=== PATIENT | female | born 1955 | race Caucasian/White ===

== ENCOUNTER 2020-07-16 13:59 | Emergency (ER) | payer OTHER ==
[2020-07-16] MEDS ORDERED: BACIGUENT PACKET ONE ×3 (14:10→15:17)
[2020-07-16] MEDS ORDERED: XYLOCAINE 1% HCL 20 ML MDV ONE (14:29)
[2020-07-16] MEDS ORDERED: XYLOCAINE 1% HCL 20 ML MDV IJ ONE (14:51)
[2020-07-16] MEDS ORDERED: BACIGUENT PACKET TP ONE (14:51)
--- NOTE | 2020-07-16 15:14 | ERPHSYRPT ---
- History of Present Illness Time Seen by Provider: 07/16/20 15:30 Source: patient Exam Limitations: no limitations Patient Subjective Stated Complaint: caught left leg on cornor of step, has laceration to left lower leg about 60 mins ago Triage Nursing Assessment: pt arrived per wc alert, with face mask in place,pt has 3 inch laceration, with some bruising, scant aamt of bleeding noted Physician History: Patient is a 65-year-old female presents to our ED with a laceration to her left lower leg. Patient was walking and lacerated her leg on the edge of a wooden step. No other injuries reported. Patient ambulatory with minimal discomfort after injury. No falls. Pain is minimal. Pain is localized. No radiation. Pain somewhat worse with palpation. Pain improves with rest. Tetanus up-to-date. Vital stable. No compromise of tenderness muscular or neurologic function. Patient voices no other complaints. Timing/Duration: today Quality: painful Severity: mild Location: other (Anterolateral aspect of distal third of the left leg.) Possible Causes: other Associated Symptoms: No blisters, No change in skin texture, No difficulty breathing, No headache, No jaundice, No nasal congestion, No numbness, No paresthesia Allergies/Adverse Reactions: oxcarbazepine [From Trileptal] Allergy (Verified 07/16/20 14:14) Penicillins Allergy (Verified 07/16/20 14:14) pregabalin [From Lyrica] Allergy (Verified 07/16/20 14:14) Sulfa (Sulfonamide Antibiotics) Allergy (Verified 07/16/20 14:14) Home Medications: Atorvastatin Calcium [Lipitor 20MG Tablet] 1 ea DAILY 07/16/20 [History] Gabapentin 1 ea TID 07/16/20 [History] Hydrocodone/Acetaminophen [Hydrocodone-Acetamin 7.5-325] 1 ea DAILY 07/16/20 [History] Levothyroxine Sodium [Synthroid] 1 ea DAILY 07/16/20 [History] Ranolazine [Ranolazine ER] 1 ea DAILY 07/16/20 [History] Tizanidine HCl 1 ea DAILY 07/16/20 [History] Hx Tetanus, Diphtheria Vaccination/Date Given: Yes (3 years ago) Hx Influenza Vaccination/Date Given: No Hx Pneumococcal Vaccination/Date Given: No Immunizations Up to Date: Yes Travel Risk - International Travel Have you traveled outside of the country in past 3 weeks: No - Coronavirus Screening Are you exhibiting any of the following symptoms?: No Close contact with a COVID-19 positive Pt in past 14-21 Days: No - Review of Systems Constitutional: No Symptoms, No Fever, No Chills Eyes: No Symptoms Ears, Nose, & Throat: No Symptoms Respiratory: No Symptoms, No Cough, No Dyspnea Cardiac: No Symptoms, No Chest Pain, No Edema, No Syncope Abdominal/Gastrointestinal: No Symptoms, No Abdominal Pain, No Nausea, No Vomiting, No Diarrhea Genitourinary Symptoms: No Symptoms, No Dysuria Musculoskeletal: No Symptoms, No Back Pain, No Neck Pain Skin: No Symptoms, No Rash Neurological: No Symptoms, No Dizziness, No Focal Weakness, No Sensory Changes Psychological: No Symptoms Endocrine: No Symptoms Hematologic/Lymphatic: No Symptoms Immunological/Allergic: No Symptoms All Other Systems: Reviewed and Negative - Past Medical History Pertinent Past Medical History: Yes Neurological History: Other Cardiac History: Coronary Artery Disease GI Medical History: Hernia Other Medical History: mohamud reflux - Past Surgical History Past Surgical History: Yes Neuro Surgical History: Other Musculoskeletal: Orthopedic Surgery Other Surgical History: back surgery 2019,brain surgery for trigimal neuopathy - Social History Smoking Status: Never smoker Exposure to second hand smoke: No Drug Use: none Patient Lives Alone: No - Female History Hx Last Menstrual Period: post Hx Now: No - Nursing Vital Signs Nursing Vital Signs: Initial Vital Signs Pulse Rate 71 07/16/20 15:21 Respiratory Rate 18 07/16/20 15:21 Blood Pressure 131/81 07/16/20 15:21 O2 Sat by Pulse Oximetry 98 07/16/20 15:21 Pain Scale Pain Intensity 0 - Physical Exam General Appearance: no apparent distress, alert Eye Exam: PERRL/EOMI, eyes nml inspection Ears, Nose, Throat Exam: normal ENT inspection, pharynx normal, moist mucous membranes Neck Exam: normal inspection, non-tender, supple, full range of motion Respiratory Exam: normal breath sounds, lungs clear, No respiratory distress Cardiovascular Exam: regular rate/rhythm, normal heart sounds Gastrointestinal/Abdomen Exam: soft, mass, No tenderness Back Exam: normal inspection, normal range of motion, No CVA tenderness, No vertebral tenderness Extremity Exam: normal inspection, normal range of motion Neurologic Exam: alert, oriented x 3, cooperative, normal mood/affect, sensation nml, No motor deficits Skin Exam: normal color, warm, dry, other (3 cm semi-curvilinear laceration to the anteromedial aspect of the left lower leg. No active bleeding. Left lower extremity is neurovascular intact distally.) Lymphatic Exam: No adenopathy SpO2 Interpretation: normal SpO2: 98 O2 Delivery: Room Air Procedures - Laceration/Wound Repair Left Lower Wound Location: Left Wound's Depth, Shape: superficial Wound Explored: clean Irrigated: Yes Hibiclens Prep: Yes Anesthesia: local, 1% Lidocaine Volume Anesthetic (ccs): 4 Wound Debrided: minimal Wound Repaired With: sutures Suture Size/Type: 5-0 Number of Sutures: 5 Layer Closure?: No Sterile Dressing Applied?: Yes Splint Applied?: No Progress: Bacitracin ointment applied to the involved wound. Patient advised to keep the wound dry and the dressing intact for 48 hours. Patient agrees to follow-up with her primary care doctor within 48 hours for reevaluation. Patient neurovascular intact distally post procedure. 07/16/20 15:27 - Course Nursing assessment & vital signs reviewed: Yes Ordered Tests: Medication Summary Discontinued Medications Generic Name Dose Route Start Last Admin Trade Name Freq PRN Reason Stop Dose Admin Bacitracin Zinc Confirm 07/16/20 14:10 Baciguent Packet Administered 07/16/20 14:11 Dose 1 gm .ROUTE .STK-MED ONE Bacitracin Zinc Confirm 07/16/20 14:29 Baciguent Packet Administered 07/16/20 14:30 Dose 1 gm .ROUTE .STK-MED ONE Bacitracin Zinc 0.9 gm 07/16/20 14:51 07/16/20 15:19 Baciguent Packet TP 07/16/20 14:52 0.9 gm STAT ONE Administration Bacitracin Zinc Confirm 07/16/20 15:17 Baciguent Packet Administered 07/16/20 15:18 Dose 1 gm .ROUTE .STK-MED ONE Lidocaine HCl Confirm 07/16/20 14:29 Xylocaine 1% Hcl 20 Ml Mdv Administered 07/16/20 14:30 Dose 10 ml .ROUTE .STK-MED ONE Lidocaine HCl 10 ml 07/16/20 14:51 07/16/20 15:18 Xylocaine 1% Hcl 20 Ml Mdv IJ 07/16/20 14:52 10 ml STAT ONE Administration - Progress Progress: improved Progress Note: 07/16/20 15:29 Patient reassessed. 5 simple interrupted sutures applied. Patient neurovascular intact distally post injury. Patient unsure when she can see her family doctor. A prescription for clindamycin was provided in the event that patient develops interval signs of infection. Patient will call her family doctor to for follow-up within 48 hours for reevaluation. Patient voices no other complaints or concerns at this time. Counseled pt/family regarding: diagnosis, need for follow-up - Departure Departure Disposition: Home Clinical Impression: Laceration Condition: Stable Critical Care Time: No Referrals: WOJCIECH MARTINES NP [Primary Care Provider] - Instructions: Laceration Repair, Stitches and [place] Additional Instructions: Discharge/Care Plan ALAN MENA was seen on 07/16/20 in the Emergency Room. The patient was counseled regarding Diagnosis,Lab results, Imaging studies, need for follow up and when to return to the Emergency Room. Prescriptions given: Discharge Note I have spoken with the patient and/or caregivers. I have explained the patient's condition, diagnosis and treatment plan based on the information available to me at this time. I have answered the patient's and/or caregiver's questions and addressed any concerns. The patient and/or caregivers have as good understanding of the patient's diagnosis, condition and treatment plan as can be expected at this point. The vital signs have been stable. The patient's condition is stable and appropriate for discharge from the emergency department. The patient will pursue further outpatient evaluation with the primary care physician or other designated or consulting physician as outlined in the discharge instructions. The patient and/or caregivers are agreeable to this plan of care and follow-up instructions have been explained in detail. The patient and/or caregivers have received these instruction. The patient/and or caregivers are aware that any significant change in condition or worsening of symptoms should prompt an immediate return to this or the closest emergency department or call 911. Prescriptions: Clindamycin HCl 150 mg [Cleocin 150 mg Capsule] 2 cap PO TID 5 Days #15 capsule
[2020-07-16 15:22] VITALS: BP 131/81; PULSE 71; O2SAT 98
== END 2020-07-16 15:35 | disposition home or self-care (01) ==
LOC: ED 13:59
DX: S81.812A Laceration without foreign body, left lower leg, initial encounter (principal); W26.8XXA Contact with other sharp object(s), not elsewhere classified, initial encounter; Y93.89 Activity, other specified; Y92.9 Unspecified place or not applicable
CPT/HCPCS: 12002; 96372; 99284; A9270-GY

== ENCOUNTER 2022-01-14 09:23 | Emergency (ER) | payer MEDICARE, OTHER ==
[2022-01-14] MEDS ORDERED: TORAdol 30 mg Injection IM ONE (09:31)
--- NOTE | 2022-01-14 09:37 | ERPHSYRPT ---
- History of Present Illness Time Seen by Provider: 01/14/22 09:50 Source: patient Physician History: Patient is a 66-year-old female presents to emergency department for evaluation of right ankle pain. Patient states she was getting out of her recliner and tripped over her 's yoga mat. Patient twisted her right ankle. No other injuries reported. Pain described as an ache that is localized. No radiation. Pain worse with movement weightbearing and palpation. Pain improved with rest. No other injuries. No BHT or LOC. No neck pain. Cervical spine cleared clinically. Patient voices no other complaints or concerns at this time. Method of Injury: fell, twisted Occurred: just prior to arrival Quality: constant, aching (Patient occasionally feels a shooting sensation of her leg. No active shooting sensation at this time.) Severity of Pain-Max: moderate Severity of Pain-Current: mild Lower Extremities Pain: ankle: right Modifying Factors: Improves With: movement Associated Symptoms: none (The fall was not associated with any neurological or cardiovascular symptomology. No chest pain or shortness of breath. No nausea vomiting or diaphoresis. No numbness tingling or weakness.) Allergies/Adverse Reactions: oxcarbazepine [From Trileptal] Allergy (Verified 01/14/22 09:31) Penicillins Allergy (Verified 01/14/22 09:31) pregabalin [From Lyrica] Allergy (Verified 01/14/22 09:31) Sulfa (Sulfonamide Antibiotics) Allergy (Verified 01/14/22 09:31) Home Medications: Atorvastatin Calcium [Lipitor 20MG Tablet] 1 ea PO DAILY 07/16/20 [History] Gabapentin 1 ea PO TID 07/16/20 [History] Levothyroxine Sodium [Synthroid] 1 ea PO DAILY 07/16/20 [History] Ranolazine [Ranolazine ER] 1 ea DAILY 07/16/20 [History] Isosorbide Mononitrate [Isosorbide Mononitrate ER] 30 mg PO DAILY 01/14/22 [History] Lamotrigine [Lamotrigine ER] 200 mg PO DAILY 01/14/22 [History] Spironolactone 25 mg [Aldactone 25 MG] 25 mg PO DAILY 01/14/22 [History] estradioL [Estradiol] 0.5 mg PO DAILY 01/14/22 [History] Hx Tetanus, Diphtheria Vaccination/Date Given: Yes (3 years ago) Hx Influenza Vaccination/Date Given: No Hx Pneumococcal Vaccination/Date Given: No - Review of Systems Constitutional: No Symptoms, No Fever, No Chills Eyes: No Symptoms Ears, Nose, & Throat: No Symptoms Respiratory: No Symptoms, No Cough, No Dyspnea Cardiac: No Symptoms, No Chest Pain, No Edema, No Syncope Abdominal/Gastrointestinal: No Symptoms, No Abdominal Pain, No Nausea, No Vomiting, No Diarrhea Genitourinary Symptoms: No Symptoms, No Dysuria Musculoskeletal: No Symptoms, No Back Pain, No Neck Pain Skin: No Symptoms, No Rash Neurological: No Symptoms, No Dizziness, No Focal Weakness, No Sensory Changes Psychological: No Symptoms Endocrine: No Symptoms Hematologic/Lymphatic: No Symptoms Immunological/Allergic: No Symptoms All Other Systems: Reviewed and Negative - Past Medical History Pertinent Past Medical History: Yes Neurological History: No Pertinent History Cardiac History: Coronary Artery Disease, Other Respiratory History: No Pertinent History Endocrine Medical History: Hypothyroidism Musculoskeletal History: No Pertinent History GI Medical History: Hernia Other Medical History: RECENT BACK SURGERY ON 06/26/10, MILD-MODERATE MITRAL VALVE REGURGATION. - Past Surgical History Past Surgical History: Yes Neuro Surgical History: Other Musculoskeletal: Orthopedic Surgery Other Surgical History: back surgery 2019,brain surgery for trigimal neuopathy - Social History Smoking Status: Never smoker Exposure to second hand smoke: No Drug Use: none Patient Lives Alone: No - Nursing Vital Signs Nursing Vital Signs: Initial Vital Signs Temperature 98.2 F 01/14/22 09:35 Pulse Rate 71 01/14/22 09:35 Blood Pressure 92/62 01/14/22 09:35 O2 Sat by Pulse Oximetry 97 01/14/22 09:35 Pain Scale Pain Intensity 8 - Physical Exam General Appearance: no apparent distress, alert Eyes, Ears, Nose, Throat Exam: moist mucous membranes Neck Exam: normal inspection, non-tender, supple, full range of motion Cardiovascular/Respiratory Exam: chest non-tender, normal breath sounds, regular rate/rhythm, heart sounds normal, no respiratory distress Gastrointestinal/Abdominal Exam: non-tender, guarding Back Exam: normal inspection, normal range of motion, No vertebral tenderness Hips Exam: bilateral: non-tender, normal inspection, normal range of motion, no evidence of injury Legs Exam: bilateral leg: non-tender, normal inspection, normal range of motion, no evidence of injury Knees Exam: bilateral knee: non-tender, normal inspection, normal range of motio n, no evidence of injury Ankle Exam: right ankle: pain, soft tissue tenderness, swelling, other (The involved extremity is neurovascularly intact distally. Compartments are soft. Cap refill less than 2 seconds. PT DP pulse palpable.), left ankle: non-tender, normal inspection, normal range of motion, no evidence of injury Foot Exam: bilateral foot: non-tender, normal inspection, normal range of motion, no evidence of injury Neuro/Tendon Exam: normal sensation, normal motor functions, normal tendon functions Mental Status Exam: alert, oriented x 3, cooperative Skin Exam: normal color, warm, dry SpO2 Interpretation: normal SpO2: 97 O2 Delivery: Room Air - Course Nursing assessment & vital signs reviewed: Yes - Radiology Exams Ankle X-ray Interpretation: Teleradiologist Report (No fracture dislocations. Soft tissue swelling observed on x-ray. There is a heel spur and a small lateral mal leolus heterotopic ossification.) Ordered Tests: Active Orders 24 hr Category Date Time Status ANKLE (3 VIEWS) Stat Exams 01/14/22 09:27 Completed Medication Summary Discontinued Medications Generic Name Dose Route Start Last Admin Trade Name Freq PRN Reason Stop Dose Admin Ketorolac Tromethamine 30 mg 01/14/22 09:31 01/14/22 09:40 Ketorolac Tromethamine 30 Mg/Ml Inj IM 01/14/22 09:32 30 mg STAT ONE Administration Ketorolac Tromethamine Confirm 01/14/22 09:38 Ketorolac Tromethamine 30 Mg/Ml Inj Administered 01/14/22 09:39 Dose 30 mg .ROUTE .STK-MED ONE - Progress Progress: improved Progress Note: Patient reassessed. Pain improved. X-ray negative for fracture dislocation. Soft tissue swelling and heel spur observed. There was a small lateral malleolus heterotopic ossification at the distal tip of the malleolus. No indication for further work-up at this time. Will discharge home. 01/14/22 10:10 Counseled pt/family regarding: diagnosis, need for follow-up, rad results - Departure Departure Disposition: Home Clinical Impression: Ankle sprain, Heel spur, Heterotopic ossification malleolus Condition: Stable Critical Care Time: No Referrals: CONRAD,WOJCIECH HEMA, ARUNA [Primary Care Provider] - Follow up/PCP as directed Additional Instructions: Discharge/Care Plan ALAN MENA was seen on 01/14/22 in the Emergency Room. The patient was counseled regarding Diagnosis,Lab results, Imaging studies, need for follow up and when to return to the Emergency Room. Prescriptions given: Discharge Note I have spoken with the patient and/or caregivers. I have explained the patient's condition, diagnosis and treatment plan based on the information available to me at this time. I have answered the patient's and/or caregiver's questions and addressed any concerns. The patient and/or caregivers have as good understanding of the patient's diagnosis, condition and treatment plan as can be expected at this point. The vital signs have been stable. The patient's condition is stable and appropriate for discharge from the emergency department. The patient will pursue further outpatient evaluation with the primary care physician or other designated or consulting physician as outlined in the discharge instructions. The patient and/or caregivers are agreeable to this plan of care and follow-up instructions have been explained in detail. The patient and/or caregivers have received these instruction. The patient/and or caregivers are aware that any significant change in condition or worsening of symptoms should prompt an immediate return to this or the closest emergency department or call 911.
[2022-01-14] MEDS ORDERED: TORAdol 30 mg Injection ONE (09:38)
[2022-01-14 09:42] VITALS: BP 92/62; PULSE 71; O2SAT 97
--- NOTE | 2022-01-14 10:00 | XRAY ---
Indication: Pain following fall. Comparison: None 3 view right ankle demonstrates mild soft tissue swelling, small posterior heel spur, and small well circumscribed lateral malleolus tip heterotopic ossification. No other bony, articular, or soft tissue abnormalities.
== END 2022-01-14 10:50 | disposition home or self-care (01) ==
LOC: ED 09:23
DX: S93.401A Sprain of unspecified ligament of right ankle, initial encounter (principal); W01.0XXA Fall on same level from slipping, tripping and stumbling without subsequent striking against object, initial encounter; Y92.009 Unspecified place in unspecified non-institutional (private) residence as the place of occurrence of the external cause; M77.31 Calcaneal spur, right foot; M61.571 Other ossification of muscle, right ankle and foot; M25.571 Pain in right ankle and joints of right foot; Z79.899 Other long term (current) drug therapy
CPT/HCPCS: 73610; 96372; 99284; J1885

== ENCOUNTER 2022-02-01 00:49 | Emergency (ER) | payer MEDICARE, OTHER ==
[2022-02-01] MEDS ORDERED: MORPHINE SULFATE 4 MG INJ IM ONE (01:05)
[2022-02-01] MEDS ORDERED: MORPHINE SULFATE 4 MG INJ ONE (01:12)
[2022-02-01 01:15] VITALS: O2SAT 96
--- NOTE | 2022-02-01 01:15 | ERPHSYRPT ---
- History of Present Illness Time Seen by Provider: 02/01/22 00:52 Source: patient Exam Limitations: no limitations Physician History: 67-year-old female with chronic knee arthritis in the left needing steroid injection regularly by orthopedic surgery presented in the ER with worsening pain in the left knee for last few weeks. She was evaluated at [facility] and was recommended that she probably needs to wait another week to get repeated steroid shot. Patient reports she has been using compression stocking and it seems like she is having more pain in the medial aspect of left knee with some radiation above and below. She has chronic lower extremity swel lings bilaterally which is not any worse than usual. She denies any fall or trauma. No fever or chills reported. Patient had leftover oxycodone which he took around 6 PM with minimal relief and pain is back again. Patient reports she has not been able to sleep because of pain for the last few days. Method of Injury: other Occurred: other Quality: sharpness Severity of Pain-Max: severe Severity of Pain-Current: moderate Lower Extremities Pain: knee: left Modifying Factors: Improves With: pain medication. Worsens With: movement Allergies/Adverse Reactions: oxcarbazepine [From Trileptal] Allergy (Verified 01/14/22 09:31) Penicillins Allergy (Verified 01/14/22 09:31) pregabalin [From Lyrica] Allergy (Verified 01/14/22 09:31) Sulfa (Sulfonamide Antibiotics) Allergy (Verified 01/14/22 09:31) Home Medications: Atorvastatin Calcium [Lipitor 20MG Tablet] 1 ea PO DAILY 07/16/20 [History] Gabapentin 1 ea PO TID 07/16/20 [History] Levothyroxine Sodium [Synthroid] 1 ea PO DAILY 07/16/20 [History] Ranolazine [Ranolazine ER] 1 ea DAILY 07/16/20 [History] Isosorbide Mononitrate [Isosorbide Mononitrate ER] 30 mg PO DAILY 01/14/22 [History] Lamotrigine [Lamotrigine ER] 200 mg PO DAILY 01/14/22 [History] Spironolactone 25 mg [Aldactone 25 MG] 25 mg PO DAILY 01/14/22 [History] estradioL [Estradiol] 0.5 mg PO DAILY 01/14/22 [History] Hx Tetanus, Diphtheria Vaccination/Date Given: Yes (3 years ago) Hx Influenza Vaccination/Date Given: No Hx Pneumococcal Vaccination/Date Given: No Travel Risk - Vaccine Status Have you recieved a Covid-19 vaccination: Yes [employer]: [employer] - Vaccination Dates Date of 2cond Vaccination (if applicable): 01/2021 - Review of Systems Constitutional: No Symptoms Ears, Nose, & Throat: No Symptoms Respiratory: No Symptoms Cardiac: No Symptoms Abdominal/Gastrointestinal: No Symptoms Genitourinary Symptoms: No Symptoms Musculoskeletal: Arthralgias, Joint Pain, Joint Swelling Skin: No Symptoms Neurological: No Symptoms Endocrine: No Symptoms Hematologic/Lymphatic: No Symptoms - Past Medical History Pertinent Past Medical History: Yes Neurological History: No Pertinent History Cardiac History: Coronary Artery Disease, Other Respiratory History: No Pertinent History Endocrine Medical History: Hypothyroidism Musculoskeletal History: No Pertinent History GI Medical History: Hernia Other Medical History: RECENT BACK SURGERY ON 06/26/10, MILD-MODERATE MITRAL VALVE REGURGATION. - Past Surgical History Past Surgical History: Yes Neuro Surgical History: Other Musculoskeletal: Orthopedic Surgery Other Surgical History: back surgery 2019,brain surgery for trigimal neuopathy - Social History Smoking Status: Never smoker Exposure to second hand smoke: No Drug Use: none Patient Lives Alone: No - Physical Exam General Appearance: no apparent distress, alert Neck Exam: normal inspection, full range of motion Cardiovascular/Respiratory Exam: normal breath sounds, regular rate/rhythm Back Exam: normal inspection, normal range of motion Hips Exam: bilateral: non-tender, normal inspection, normal range of motion, no evidence of injury Legs Exam: bilateral leg: non-tender, normal inspection, normal range of motion, no evidence of injury, swelling (Bilateral chronic swelling) Knees Exam: right knee: non-tender, left knee: bone tenderness (On medial aspect), soft tissue tenderness, bilateral knee: normal inspection, normal range of motion, no evidence of injury Ankle Exam: bilateral ankle: non-tender, normal inspection, normal range of motion, no evidence of injury Neuro/Tendon Exam: normal sensation, normal motor functions, normal tendon functions Mental Status Exam: alert, oriented x 3, cooperative Skin Exam: normal color SpO2 Interpretation: normal SpO2: 96 O2 Delivery: Room Air Ordered Tests: Medication Summary Discontinued Medications Generic Name Dose Route Start Last Admin Trade Name Freq PRN Reason Stop Dose Admin Morphine Sulfate 4 mg 02/01/22 01:05 Morphine Sulfate 4 Mg/Ml Injection IM 02/01/22 01:06 STAT ONE - Progress Progress: improved Progress Note: 02/01/22 She is given morphine for symptomatic relief, on reevaluation feeling better. She does not have any fall trauma or obvious swelling of the knee as compared to right. She has a bilateral lower extremity chronic swelling which is not any worse than usual and actually her right leg is more swollen than the left. No calf tenderness. Negative Homans' sign. I believe patient's pain is secondary to knee arthritis. She has appointment with her orthopedic surgery tomorrow. She is given couple of pills for pain control today and recommended outpatient follow-up. Discussed signs symptoms of worsening needing return to ER which she seems understanding. Stable for discharge. Counseled pt/family regarding: diagnosis, need for follow-up - Departure Departure Disposition: Home Clinical Impression: Knee pain, left Qualifiers: Chronicity: chronic Qualified Code(s): M25.562 - Pain in left knee; G89.29 - Other chronic pain Condition: Stable Critical Care Time: No Referrals: WOJCIECH MARTINES NP [Primary Care Provider] - Follow Up with PCP/3 days Instructions: Chronic Knee Pain (DC) Additional Instructions: Take pain medications as needed. Keep appointment with your orthopedic surgery for reevaluation tomorrow. Continue with compression stocking, leg elevation. Return to ER if have increased swelling lower extremity than usual, excruciating knee pain, swelling of knee, redness around knee, fever chills etc.
[2022-02-01 01:18] VITALS: BP 133/89; PULSE 68
[2022-02-01] MEDS ORDERED: HYDROCODONE-ACETAMIN 10-325 MG PO ONE (01:19)
== END 2022-02-01 01:54 | disposition home or self-care (01) ==
LOC: ED 00:49
DX: G89.29 Other chronic pain (principal); M25.562 Pain in left knee; M17.12 Unilateral primary osteoarthritis, left knee; R60.0 Localized edema; Z79.899 Other long term (current) drug therapy
CPT/HCPCS: 96372; 99283; J2270; A9270-GY

== ENCOUNTER 2022-12-26 10:24 | Emergency (ER) | payer MEDICARE, OTHER ==
[2022-12-26 10:44] VITALS: BP 121/72
[2022-12-26] MEDS ORDERED: TORAdol 30 mg Injection IV ONE (10:51)
[2022-12-26] MEDS ORDERED: BENADRYL 50 MG/ML IV ONE (10:51)
--- NOTE | 2022-12-26 10:54 | ERPHSYRPT ---
- History of Present Illness Time Seen by Provider: 12/26/22 10:52 Source: patient, family, EMS Exam Limitations: no limitations Patient Subjective Stated Complaint: Pt had left knee surgery on 11/05/2022 and approx 2 weeks later she began having what appears to be sciatica pain going from the left buttock down to her toes, the pain today is severe and is rated a 10/10 Triage Nursing Assessment: Pt brought to the ER by EMS, [facility], rates pain from left buttock to left foot as 10/10, partial left knee replacement was on 11/05/2022 and the pain began a couple of weeks later, pt also has some messed up lower discs, pulses normal, skin n/w/d, shaking/crying, appears to be in significant pain Physician History: Pt had left knee surgery on 11/05/2022 and approx 2 weeks later she began having what appears to be sciatica pain going from the left buttock down to her toes, the pain today is severe and is rated a 10/10 Occurred: this morning Quality: constant Severity of Pain-Max: moderate Severity of Pain-Current: moderate Lower Extremities Pain: hip: left, leg: left, thigh: left, foot: left Modifying Factors: Improves With: nothing Associated Symptoms: none Allergies/Adverse Reactions: oxcarbazepine [From Trileptal] Allergy (Verified 12/26/22 10:44) Penicillins Allergy (Verified 12/26/22 10:44) pregabalin [From Lyrica] Allergy (Verified 12/26/22 10:44) Sulfa (Sulfonamide Antibiotics) Allergy (Verified 12/26/22 10:44) Home Medications: Atorvastatin Calcium [Lipitor 20MG Tablet] 40 mg PO DAILY 07/16/20 [History] Gabapentin 1 ea PO BID 07/16/20 [History] Levothyroxine Sodium [Synthroid] 100 mcg PO DAILY 07/16/20 [History] Ranolazine [Ranolazine ER] 1 ea DAILY 07/16/20 [History] Isosorbide Mononitrate [Isosorbide Mononitrate ER] 30 mg PO DAILY 01/14/22 [History] Spironolactone 25 mg [Aldactone 25 MG] 25 mg PO DAILY 01/14/22 [History] Cyclobenzaprine HCl 10 mg [Cyclobenzaprine 10 MG] 10 mg PO HS 12/26/22 [History] Hx Tetanus, Diphtheria Vaccination/Date Given: Yes (3 years ago) Hx Influenza Vaccination/Date Given: No Hx Pneumococcal Vaccination/Date Given: No Travel Risk - International Travel Have you traveled outside of the country in past 3 weeks: No - Coronavirus Screening Are you exhibiting any of the following symptoms?: No Close contact with a COVID-19 positive Pt in past 14-21 Days: No - Vaccine Status Have you recieved a Covid-19 vaccination: Yes 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[employer] - Vaccination Dates Date of 2cond Vaccination (if applicable): 01/2021 - Review of Systems Constitutional: No Fever, No Chills Eyes: No Symptoms Ears, Nose, & Throat: No Symptoms Respiratory: No Cough, No Dyspnea Cardiac: No Chest Pain, No Edema, No Syncope Abdominal/Gastrointestinal: No Abdominal Pain, No Nausea, No Vomiting, No Diarrhea Genitourinary Symptoms: No Dysuria Musculoskeletal: Back Pain, No Neck Pain, No Fall Skin: No Rash Neurological: No Dizziness, No Focal Weakness, No Sensory Changes Psychological: No Symptoms Endocrine: No Symptoms All Other Systems: Reviewed and Negative - Past Medical History Pertinent Past Medical History: Yes Neurological History: Other Cardiac History: High Cholesterol Respiratory History: No Pertinent History Endocrine Medical History: Hypothyroidism Musculoskeletal History: Degenerative Disk Disease, Osteoarthritis GI Medical History: Hernia Other Medical History: TRIGEMINAL NEURALGIA, MILD TO MODERATE MITRAL VALVE REGURGITATION - Past Surgical History Past Surgical History: Yes Neuro Surgical History: Other Musculoskeletal: Joint Replacement, Orthopedic Surgery Female Surgical History: Hysterectomy, Tubal Ligation Other Surgical History: back surgery 2019,brain surgery for trigimal neuropathy, partial left knee replacement, back surgery on the right and left, vaginal hernia, vein ablation - Social History Smoking Status: Never smoker Exposure to second hand smoke: No Drug Use: none Patient Lives Alone: No - Nursing Vital Signs Nursing Vital Signs: Initial Vital Signs Temperature 98.4 F 12/26/22 10:30 Pulse Rate 71 12/26/22 10:30 Blood Pressure 121/72 12/26/22 10:30 O2 Sat by Pulse Oximetry 100 12/26/22 10:30 Pain Scale Pain Intensity 8 - Physical Exam General Appearance: alert Eyes, Ears, Nose, Throat Exam: moist mucous membranes Neck Exam: non-tender, supple Cardiovascular/Respiratory Exam: chest non-tender, normal breath sounds, regular rate/rhythm, no respiratory distress Gastrointestinal/Abdominal Exam: non-tender, guarding Back Exam: normal inspection, No vertebral tenderness Hips Exam: bilateral: non-tender Legs Exam: bilateral leg: non-tender Knees Exam: bilateral knee: non-tender Ankle Exam: bilateral ankle: non-tender Foot Exam: bilateral foot: non-tender Neuro/Tendon Exam: normal sensation, normal motor functions Mental Status Exam: alert, oriented x 3, cooperative Skin Exam: normal color, warm, dry SpO2: 100 - Course Nursing assessment & vital signs reviewed: Yes - CT Exams Lumbar Spine CT Interpretation: Tele-radiologist Report Ordered Tests: Active Orders 24 hr Category Date Time Status LUMBAR SPINE W/O [CT] Stat Exams 12/26/22 11:24 Taken Medication Summary Discontinued Medications Generic Name Dose Route Start Last Admin Trade Name Freq PRN Reason Stop Dose Admin Diphenhydramine HCl 25 mg 12/26/22 10:51 12/26/22 11:07 Diphenhydramine Hcl 50 Mg/Ml Vial IV 12/26/22 10:52 25 mg STAT ONE Administration Diphenhydramine HCl Confirm 12/26/22 11:06 Diphenhydramine Hcl 50 Mg/Ml Vial Administered 12/26/22 11:07 Dose 50 mg .ROUTE .STK-MED ONE Ketorolac Tromethamine 30 mg 12/26/22 10:51 12/26/22 11:07 Ketorolac Tromethamine 30 Mg/Ml Inj IV 12/26/22 10:52 30 mg STAT ONE Administration Ketorolac Tromethamine Confirm 12/26/22 11:06 Ketorolac Tromethamine 30 Mg/Ml Inj Administered 12/26/22 11:07 Dose 30 mg .ROUTE .STK-MED ONE Lorazepam 2 mg 12/26/22 11:16 12/26/22 11:22 Lorazepam 2 Mg/1 Ml 2 Mg Vial IV 12/26/22 11:17 2 mg STAT ONE Administration Lorazepam Confirm 12/26/22 11:21 Lorazepam 2 Mg/1 Ml 2 Mg Vial Administered 12/26/22 11:22 Dose 2 mg .ROUTE .STK-MED ONE - Progress Progress: improved, pain not gone completely Counseled pt/family regarding: diagnosis, need for follow-up, rad results Medical Desision Making - Discussion of managment Reviewed:: Test results, Need for additional workup Agreed on:: Treatment plan, need for follow-up - Diagnostic Testing Diagnostic test were ordered, analyzed, and reviewed by me: Yes Radiological Interpretation: Interpreted by me, Reviewed by me, Teleradiologist Report - Risk of complications Low Risk: Low risk of morbidity from additional dx testing or treatment The pt has a mod risk of morbidity or mortality based on: Need for prescription drug management - Departure Departure Disposition: Home Clinical Impression: Neuralgia of left sciatic nerve, Lumbosacral disc disease Condition: Stable Critical Care Time: Yes Critical Care Time(excluding separately billable procedures): Critical 30-74 mins Referrals: WOJCIECH MARTINES [employer] [Primary Care Provider] - Follow up/PCP as directed Instructions: Sciatica (DC), Sciatica ED Additional Instructions: Discharge/Care Plan ALAN MENA was seen on 12/26/22 in the Emergency Room. The patient was counseled regarding Diagnosis,Lab results, Imaging studies, need for follow up and when to return to the Emergency Room. Prescriptions given: Discharge Note I have spoken with the patient and/or caregivers. I have explained the patient's condition, diagnosis and treatment plan based on the information available to me at this time. I have answered the patient's and/or caregiver's questions and addressed any concerns. The patient and/or caregivers have as good understanding of the patient's diagnosis, condition and treatment plan as can be expected at this point. The vital signs have been stable. The patient's condition is stable and appropriate for discharge from the emergency department. The patient will pursue further outpatient evaluation with the primary care physician or other designated or consulting physician as outlined in the discharge instructions. The patient and/or caregivers are agreeable to this plan of care and follow-up instructions have been explained in detail. The patient and/or caregivers have received these instruction. The patient/and or caregivers are aware that any significant change in condition or worsening of symptoms should prompt an immediate return to this or the closest emergency department or call 911. ALAN MENA was seen on 12/26/22 n the Emergency Room. At that time you were treated for an emergent condition, during your visit Laboratory, Radiology and/or other procedures may have been ordered. It is very important that you follow-up with your Primary Care Physician WOJCIECH MARTINES within the next 24-48 hours to review your Emergency Room visit and the final results of testing that was ordered. Some test results such as Urine Cultures, Blood Cultures, and other cultures if ordered will not be finalized for 24-48 hours. If you do not have a Primary Care Provider please call the medical records department at [phone] ext [phone] to obtain a copy of your results or you may sign into our patient portal to obtain these results by visiting us @ [email or web address] and completing the following steps: 1. Click on the Patient Portal link 2. Click the Patient Self Enrollment Link to complete the enrollment form and entering your 3. Once the enrollment form is completed you will receive an email with a temporary ID and password at the email address you provided. 4. Next choose a user name and password. Your user name must be at least 4 characters long and your password must be at least 4 characters long. 5. Choose a security question from the list and provide your answer to the question. If you already have signed into the Health Portal you may access your Health Care Information 03/05 by the following steps: 1. Login to our website @ [email or web address] 2. Enter your original user name and password. FAQS The [facility] Health Portal is an online tool that contains your Lab Results, Radiology Reports, Visit History, Discharge Instructions and Health Summary Lab and Radiology Results will not be available for 72 hours on the portal. The Portal is a secure site, passwords are encryted and URLs are re-written so they cannot be copied and pasted. You and authorized family members are the only ones who can access your Portal. Also there is a timeout feature that protects your information if you leave the Portal page open. If you have technical difficulty please use the Contact Us link on the page this will allow you to submit any questions you have regarding the Portal or you may contact the Medical Record Department at [phone]. Prescriptions: Hydrocodone/Acetaminophen [Hydrocodone-Acetamin 10-325 mg] 1 each PO QIDPRN PRN #20 tablet MDD 4 PRN Reason: Moderate Pain
[2022-12-26] MEDS ORDERED: BENADRYL 50 MG/ML ONE (11:06)
[2022-12-26] MEDS ORDERED: TORAdol 30 mg Injection ONE (11:06)
[2022-12-26] MEDS ORDERED: Ativan 2 MG/1 ML VIAL IV ONE (11:16)
[2022-12-26] MEDS ORDERED: Ativan 2 MG/1 ML VIAL ONE (11:21)
[2022-12-26 13:28] VITALS: PULSE 78; O2SAT 98
--- NOTE | 2022-12-26 20:18 | XRAY ---
Indication: Left sciatica. Multiple contiguous axial images obtained through the lumbar spine. Sagittal and coronal reformatted images obtained. Comparison: None There are 4 typical lumbar segments with partially sacralized L5. Axial images demonstrates minimal annular disc bulge at L2-L3 level without significant spinal canal or foraminal compromise. Mild/moderate annular disc bulge at L3-L4 level greater towards the left with degenerative vacuum disc phenomena effacing the thecal sac and producing bilateral foraminal narrowing. Mild broad-based disc osteophyte complex at L4-L5 level also effaces the thecal sac and producing bilateral foraminal stenosis. Mild bilateral L3-L5 degenerative facet hypertrophy. Sagittal and coronal reformatted images demonstrates normal alignment. L4-L5 disc space loss. No acute compression fracture or subluxation. Visualized noncontrasted soft tissues demonstrates minimal aortoiliac calcifications and 1 cm left lower renal exophytic cyst. Impression: 1. L3-L5 degenerative disc disease as detailed. Outpatient MRI lumbar spine medial further formation. 2. Incidental minimal arteriosclerotic disease and small left renal cyst. Comment: Preliminary interpretation made by [facility]. No critical discrepancy.
== END 2022-12-26 13:28 | disposition home or self-care (01) ==
LOC: ED 10:24
DX: G58.8 Other specified mononeuropathies (principal); M51.17 Intervertebral disc disorders with radiculopathy, lumbosacral region; M79.605 Pain in left leg; E78.5 Hyperlipidemia, unspecified; Z79.899 Other long term (current) drug therapy; Z79.891 Long term (current) use of opiate analgesic
CPT/HCPCS: 72131; 96374; 96375; 99284; 99291; J1200; J1885; J2060

== ENCOUNTER 2023-01-04 13:11 | Emergency (ER) | payer MEDICARE, OTHER ==
--- NOTE | 2023-01-04 13:14 | ERPHSYRPT ---
- History of Present Illness Time Seen by Provider: 01/04/23 13:13 Source: patient, family Exam Limitations: no limitations Physician History: This is a 67-year-old white female patient of Dr. Howard who has been having worsening shortness of breath of the last 4 to 5 days. The patient had a knee replacement surgery 7 weeks ago. Prior to that, the patient had low back surgery. Patient has no known history of bleeding or clotting disorders. She is not on any anticoagulation therapy. Patient does have a history of hyperlipidemia, hypothyroidism, mild mitral valve regurgitation, trigeminal neuralgia and degenerative disc disease. Patient states that she can barely walk across the room at her home without becoming more short of breath than usual for her. It has been worsening over the last 4 to 5 days. She denies chest pain. She has no abdominal pain. She has had no known blood loss. Patient was started on Levaquin on 01/01/2023. Timing/Duration: day(s) (4 to 5 days), worse Activities at Onset: activity Severity of Dyspnea-Max: moderate Severity of Dyspnea-Current: moderate Possible Cause: no prior episodes Modifying Factors: Improves With: activity (Worsens), rest (Improves) Associated Symptoms: No chest pain/discomfort Allergies/Adverse Reactions: oxcarbazepine [From Trileptal] Allergy (Verified 12/26/22 10:44) Penicillins Allergy (Verified 01/04/23 13:33) pregabalin [From Lyrica] Allergy (Verified 12/26/22 10:44) Sulfa (Sulfonamide Antibiotics) Allergy (Verified 12/26/22 10:44) Home Medications: Atorvastatin Calcium [Lipitor 20MG Tablet] 40 mg PO DAILY 07/16/20 [History] Levothyroxine Sodium [Synthroid] 100 mcg PO DAILY 07/16/20 [History] Ranolazine [Ranolazine ER] 1 ea DAILY 07/16/20 [History] Isosorbide Mononitrate [Isosorbide Mononitrate ER] 30 mg PO DAILY 01/14/22 [History] Spironolactone 25 mg [Aldactone 25 MG] 25 mg PO DAILY 01/14/22 [History] Cyclobenzaprine HCl 10 mg [Cyclobenzaprine 10 MG] 10 mg PO HS 12/26/22 [History] Hx Tetanus, Diphtheria Vaccination/Date Given: Yes (3 years ago) Hx Influenza Vaccination/Date Given: No Hx Pneumococcal Vaccination/Date Given: No Travel Risk - International Travel Have you traveled outside of the country in past 3 weeks: No - Coronavirus Screening Are you exhibiting any of the following symptoms?: Yes Symptoms: Shortness of Breath Close contact with a COVID-19 positive Pt in past 14-21 Days: No - Vaccine Status Have you recieved a Covid-19 vaccination: Yes 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[employer] - Vaccination Dates Date of 2cond Vaccination (if applicable): 01/2021 - Review of Systems Constitutional: No Symptoms Eyes: No Symptoms Ears, Nose, & Throat: No Symptoms Respiratory: Dyspnea, Dyspnea on Exertion ([place]) Cardiac: No Symptoms Abdominal/Gastrointestinal: No Symptoms Genitourinary Symptoms: No Symptoms Musculoskeletal: No Symptoms Skin: No Symptoms Neurological: No Symptoms Psychological: No Symptoms Endocrine: No Symptoms Hematologic/Lymphatic: No Symptoms Immunological/Allergic: No Symptoms All Other Systems: Reviewed and Negative - Past Medical History Pertinent Past Medical History: Yes Neurological History: Other Cardiac History: High Cholesterol Respiratory History: No Pertinent History Endocrine Medical History: Hypothyroidism Musculoskeletal History: Degenerative Disk Disease, Osteoarthritis GI Medical History: Hernia Other Medical History: TRIGEMINAL NEURALGIA, MILD TO MODERATE MITRAL VALVE REGURGITATION - Past Surgical History Past Surgical History: Yes Neuro Surgical History: Other Musculoskeletal: Joint Replacement, Orthopedic Surgery Female Surgical History: Hysterectomy, Tubal Ligation Other Surgical History: back surgery 2019,brain surgery for trigimal neuropathy, partial left knee replacement, back surgery on the right and left, vaginal hernia, vein ablation - Social History Smoking Status: Never smoker Exposure to second hand smoke: No Drug Use: none Patient Lives Alone: No - Nursing Vital Signs Nursing Vital Signs: Initial Vital Signs Temperature 98.1 F 01/04/23 13:19 Pulse Rate 83 01/04/23 13:19 Respiratory Rate 14 01/04/23 13:19 Blood Pressure 131/85 01/04/23 13:19 O2 Sat by Pulse Oximetry 100 01/04/23 13:19 Pain Scale Pain Intensity 0 - Physical Exam General Appearance: no apparent distress, alert, anxiety Eye Exam: PERRL/EOMI, eyes nml inspection Ears, Nose, Throat Exam: hearing grossly normal, normal ENT inspection, normal pharynx Neck Exam: normal inspection, non-tender, supple, full range of motion Respiratory Exam: normal breath sounds, lungs clear, No chest tenderness, No respiratory distress Cardiovascular/Chest Exam: normal heart sounds, regular rate/rhythm, normal peripheral pulses Abdominal/Gastrointestinal Exam: soft, normal bowel sounds, No tenderness Rectal Exam: not done Extremity Exam: non-tender, normal range of motion, normal inspection, normal capillary refill, no calf tenderness, no pedal edema, pelvis stable, No calf tenderness Neurologic Exam: alert, oriented x 3, cooperative, flask maker II-XII nml as tested, normal mood/affect, nml cerebellar function, nml station & gait, sensation nml Skin Exam: normal color, warm, dry Lymphatic Exam: No adenopathy SpO2 Interpretation: normal O2 Delivery: Room Air - Course Nursing assessment & vital signs reviewed: Yes EKG Interpreted by Me: RATE (63), Sinus Rhythm, NORMAL AXIS, NORMAL INTERVALS, NORMAL QRS, NORMAL ST-T, Other (No acute ischemic changes on today's twelve-lead EKG. This twelve-lead EKG was interpreted by me.) Ordered Tests: Active Orders 24 hr Category Date Time Status Bioinformatics Support Specialist STAT Care 01/04/23 13:31 Active EKG-ER Only STAT Care 01/04/23 13:31 Active IV Insertion STAT Care 01/04/23 13:31 Active Pulse Oximetry (ED) STAT Care 01/04/23 13:31 Active CHEST WITH CONTRAST [CT] Stat Exams 01/04/23 13:31 Completed VENOUS BILATERAL EXTREMITY [US] Stat Exams 01/04/23 14:12 Completed CBC W DIFF Stat Lab 01/04/23 13:31 Completed CMP Stat Lab 01/04/23 13:51 Completed D-DIMER QUANTITATIVE Stat Lab 01/04/23 13:51 Completed NT PRO BNPII Stat Lab 01/04/23 13:51 Completed TROPONIN Q4H Lab 01/04/23 13:51 Completed TROPONIN Q4H Lab 01/04/23 17:45 Ordered TROPONIN Q4H Lab 01/04/23 21:45 Ordered UA W/RFX UR CULTURE Stat Lab 01/04/23 14:45 Completed Medication Summary Generic Name Dose Route Start Last Admin Trade Name Freq PRN Reason Stop Dose Admin Sodium Chloride 1,000 mls @ 100 mls/hr 01/04/23 13:45 01/04/23 15:05 Sodium Chloride 0.9% 1000 Ml IV 02/03/23 13:44 Infused .Q10H ANTONIO Infusion Lab/Rad Data: Laboratory Result Diagrams 01/04/23 13:31 01/04/23 13:51 Laboratory Results 01/04/23 01/04/23 01/04/23 Range/Units 14:45 13:51 13:51 WBC (4.0-10.5) x10^3/uL RBC (4.1-5.4) x10^6/uL Hgb (12.0-16.0) g/dL Hct (35-47) % MCV (78-100) fL MCH (26-32) pg MCHC (32-36) g/dL RDW (11.5-14.0) % Plt Count (150-450) x10^3/uL MPV (7.5-11.0) fL Gran % (36.0-66.0) % Immature Gran % (Auto) (0.00-0.4) % Nucleat RBC Rel Count (0.00-0.1) % Eos # (Auto) (0-0.5) x10^3/uL Immature Gran # (Auto) (0.00-0.03) x10^3u/L Absolute Lymphs (auto) (1.0-4.6) x10^3/uL Absolute Monos (auto) (0.0-1.3) x10^3/uL Absolute Nucleated RBC (0.00-0.01) x10^3u/L Lymphocytes % (24.0-44.0) % Monocytes % (0.0-12.0) % Eosinophils % (0.00-5.0) % Basophils % (0.0-0.4) % Absolute Granulocytes (1.4-6.9) x10^3/uL Basophils # (0-0.4) x10^3/uL D-Dimer 0.46 (0.0-0.50) mg/L Sodium (137-145) mmol/L Potassium (3.5-5.1) mmol/L Chloride (98-107) mmol/L Carbon Dioxide (22-30) mmol/L Anion Gap (5-15) MEQ/L BUN (7-17) mg/dL Creatinine (0.52-1.04) mg/dL Estimated GFR ML/MIN Glucose (74-106) mg/dL Calcium (8.4-10.2) mg/dL Total Bilirubin (0.2-1.3) mg/dL AST (14-36) U/L ALT (0-35) U/L Alkaline Phosphatase (38-126) U/L Troponin I < 0.012 (0.000-0.034) ng/mL NT-Pro-B Natriuret Pep (<300) pg/mL Serum Total Protein (6.3-8.2) g/dL Albumin (3.5-5.0) g/dL Urine Color Yellow (Yellow) Urine Appearance Clear (Clear) Urine pH 6.0 (4.6-8.0) Ur Specific [place] <=1.005 (1.005-1.030) Urine Protein Negative (Negative) Urine Glucose (UA) Negative (Negative) mg/dL Urine Ketones Negative (Negative) Urine Blood Negative (Negative) Urine Nitrite Negative (Negative) Urine Bilirubin Negative (Negative) Urine Urobilinogen 0.2 (0.2) mg/dL Ur Leukocyte Esterase Negative (Negative) U Hyaline Cast (Auto) NONE SEEN (0-2) /LPF Urine Microscopic RBC 0-2 (0-5) /HPF Urine Microscopic WBC 0-2 (0-5) /HPF Ur Epithelial Cells None Seen (None Seen) /HPF Urine Bacteria None Seen (None Seen) /HPF Urine Culture Reflexed NO (NO) Slides for Path Review 01/04/23 01/04/23 Range/Units 13:51 13:31 WBC 18.1 H (4.0-10.5) x10^3/uL RBC 5.12 (4.1-5.4) x10^6/uL Hgb 16.2 H (12.0-16.0) g/dL Hct 50.0 H (35-47) % MCV 97.7 (78-100) fL MCH 31.6 (26-32) pg MCHC 32.4 (32-36) g/dL RDW 12.7 (11.5-14.0) % Plt Count 236 (150-450) x10^3/uL MPV 10.9 (7.5-11.0) fL Gran % 65.4 (36.0-66.0) % Immature Gran % (Auto) 1.7 H (0.00-0.4) % Nucleat RBC Rel Count 0.0 (0.00-0.1) % Eos # (Auto) 0.05 (0-0.5) x10^3/uL Immature Gran # (Auto) 0.30 H (0.00-0.03) x10^3u/L Absolute Lymphs (auto) 4.33 (1.0-4.6) x10^3/uL Absolute Monos (auto) 1.51 H (0.0-1.3) x10^3/uL Absolute Nucleated RBC 0.00 (0.00-0.01) x10^3u/L Lymphocytes % 23.9 L (24.0-44.0) % Monocytes % 8.3 (0.0-12.0) % Eosinophils % 0.3 (0.00-5.0) % Basophils % 0.4 (0.0-0.4) % Absolute Granulocytes 11.83 H (1.4-6.9) x10^3/uL Basophils # 0.08 (0-0.4) x10^3/uL D-Dimer (0.0-0.50) mg/L Sodium 140 (137-145) mmol/L Potassium 3.8 (3.5-5.1) mmol/L Chloride 101 (98-107) mmol/L Carbon Dioxide 28 (22-30) mmol/L Anion Gap 14.0 (5-15) MEQ/L BUN 19 H (7-17) mg/dL Creatinine 1.24 H (0.52-1.04) mg/dL Estimated GFR 46.0 ML/MIN Glucose 93 (74-106) mg/dL Calcium 8.9 (8.4-10.2) mg/dL Total Bilirubin 0.60 (0.2-1.3) mg/dL AST 21 (14-36) U/L ALT 18 (0-35) U/L Alkaline Phosphatase 92 (38-126) U/L Troponin I (0.000-0.034) ng/mL NT-Pro-B Natriuret Pep 217 (<300) pg/mL Serum Total Protein 7.2 (6.3-8.2) g/dL Albumin 4.0 (3.5-5.0) g/dL Urine Color (Yellow) Urine Appearance (Clear) Urine pH (4.6-8.0) Ur Specific [place] (1.005-1.030) Urine Protein (Negative) Urine Glucose (UA) (Negative) mg/dL Urine Ketones (Negative) Urine Blood (Negative) Urine Nitrite (Negative) Urine Bilirubin (Negative) Urine Urobilinogen (0.2) mg/dL Ur Leukocyte Esterase (Negative) U Hyaline Cast (Auto) (0-2) /LPF Urine Microscopic RBC (0-5) /HPF Urine Microscopic WBC (0-5) /HPF Ur Epithelial Cells (None Seen) /HPF Urine Bacteria (None Seen) /HPF Urine Culture Reflexed (NO) Slides for Path Review YES - Progress Progress: improved, re-examined Air Movement: good Progress Note: 01/04/23 15:05 Bilateral lower extremity venous Dopplers were negative for DVT. These results were reviewed by me. 01/04/23 15:27 CAT scan of the chest with contrast shows no pulmonary embolus. There are no acute cardiopulmonary abnormalities. This patient's medical issue is 1 of moderate complexity. The level of complexity in the work-up performed was based on the review of the past medical history, review of the patient's medication list, review of the patient's drug allergies, history of present illness and physical findings on examination. The work-up included placement of intravenous line, infusion of normal saline solution, obtaining bilateral lower extremity venous Dopplers, obtaining a CTA of the chest to evaluate for pulmonary embolus, twelve-lead EKG, CBC, CMP, troponin, D-dimer and urinalysis tests. The patient does have a leukocytosis. She is taking Levaquin and she will continue taking this as an outpatient. There is no evidence of any pulmonary embolus or acute cardiopulmonary abnormalities. There is no evidence of deep venous thromboses. Patient is afebrile. Her room air oxygenation saturation levels 100%. Patient is to continue ambulating and follow-up with her primary care provider for further evaluation management. 01/04/23 15:30 Blood Culture(s) Obtained: Yes Antibiotics given: Yes Counseled pt/family regarding: lab results, diagnosis, rad results Medical Desision Making - Independent Historian Additional History obtained from: Spouse - Discussion of managment Reviewed:: Test results Agreed on:: Treatment plan, need for follow-up - Diagnostic Testing Diagnostic test were ordered, analyzed, and reviewed by me: Yes Radiological Interpretation: Reviewed by me - Risk of complications Low Risk: Low risk of morbidity from additional dx testing or treatment - Departure Departure Disposition: Home Clinical Impression: Shortness of breath Condition: Stable Critical Care Time: No Referrals: WOJCIECH HOWARD NP [Primary Care Provider] - Follow up/PCP as directed Additional Instructions: Take your medication as prescribed. Increase your level of activity. Follow-up with your primary care provider tomorrow by phone to make arrange for follow-up appointment the next 3 to 5 days.
[2023-01-04] MEDS ORDERED: Sodium Chloride 0.9% 1000 ML 1,000 ML ONE (13:41)
[2023-01-04] MEDS ORDERED: Sodium Chloride 0.9% 1000 ML 1,000 ML IV SCH (13:45)
[2023-01-04 13:47] LABS: Absolute Neutrophil Ct (ANC) 11.83 x10^3/uL (1.4-6.9); BASOPHIL % 0.4 % (0.0-0.4); Basophil (Absolute #) 0.08 x10^3/uL (0-0.4); Eosinophil % 0.3 % (0.00-5.0); Eosinophil (Absolute #) 0.05 x10^3/uL (0-0.5); Hemoglobin 16.2 g/dL (12.0-16.0); IMMATURE GRAN % 1.7 % (0.00-0.4); Lymphocyte (Absolute #) 4.33 x10^3/uL (1.0-4.6); Lymphocytes % 23.9 % (24.0-44.0); Mean Cell Volume 97.7 fL (78-100); Mean Corpuscular Hemoglobin 31.6 pg (26-32); Mean Corpuscular Hgb Concent. 32.4 g/dL (32-36); Mean Platelet Volume 10.9 fL (7.5-11.0); Monocyte (Absolute #) 1.51 x10^3/uL (0.0-1.3); Monocytes % 8.3 % (0.0-12.0); Neutrophil % 65.4 % (36.0-66.0); Platelet Count 236 x10^3/uL (150-450); Red Blood Count 5.12 x10^6/uL (4.1-5.4); Red Cell Distribution Width 12.7 % (11.5-14.0); White Blood Count 18.1 x10^3/uL (4.0-10.5)
[2023-01-04 14:13] LABS: BILIRUBIN,TOTAL 0.6 mg/dL (0.2-1.3); Calcium 8.9 mg/dL (8.4-10.2); Creatinine 1 1.24 mg/dL (0.52-1.04); Potassium 3.8 mmol/L (3.5-5.1); Total Protein 7.2 g/dL (6.3-8.2)
--- NOTE | 2023-01-04 14:19 | XRAY ---
Indication: Short of breath. Status post left knee replacement. Two-dimensional sonogram and color Doppler imaging of the major venous vessels of the left and right leg performed. Comparison: None No thrombus seen in the examined deep venous vessels of the left and right leg including greater saphenous vein. Veins demonstrate normal compressibility. Venous waveforms are normal with and without augmentation. Impression: Left and right legs negative for DVT.
[2023-01-04 14:38] LABS: Slide Review 1 YES
[2023-01-04 15:05] LABS: Appearance Clear (Clear); Bacteria None Seen /HPF (None Seen); Bilirubin Negative (Negative); Blood Negative (Negative); Epithelial Cells None Seen /HPF (None Seen); Glucose, Urine Negative (Negative); Hyaline Casts NONE SEEN /LPF (0-2); Ketones Negative (Negative); Leukocyte Esterase Negative (Negative); Nitrite Negative (Negative); Protein,Urine Dip Negative (Negative); RBC 0-2 /HPF (0-5); Specific Gravity <=1.005 (1.005-1.030); Urobilinogen 0.2 mg/dL (0.2); WBC 0-2 /HPF (0-5)
[2023-01-04 15:06] LABS: ADD URINE CULTURE? NO (NO)
[2023-01-04 15:07] VITALS: BP 131/81; PULSE 73; O2SAT 99
--- NOTE | 2023-01-04 15:16 | XRAY ---
Indication: Short of breath. Multiple contiguous images obtained through the chest using 80 cc Isovue 370 contrast and PE protocol. Comparison: None Good opacification of the pulmonary arteries to include the lobar and segmental branches. No pulmonary embolus. Heart is not enlarged. Aorta is normal in course and caliber. No pathologic mediastinal/hilar lymphadenopathy. Small hiatal hernia. Lungs demonstrate mild dependent atelectasis. No suspicious pulmonary mass/nodule, infiltrate or effusion. Bony thorax intact with minimal degenerative changes throughout the spine. Limited upper abdomen demonstrates 7.5 cm hepatic cyst. Impression: 1. Negative pulmonary embolus. No acute cardiopulmonary abnormalities. 2. Incidental small hiatal hernia and large hepatic cyst.
== END 2023-01-04 15:46 | disposition home or self-care (01) ==
LOC: ED 13:11
DX: R06.02 Shortness of breath (principal); E78.5 Hyperlipidemia, unspecified; Z79.899 Other long term (current) drug therapy; E03.9 Hypothyroidism, unspecified; I34.0 Nonrheumatic mitral (valve) insufficiency
CPT/HCPCS: 36000; 36415; 71260; 80053; 81001; 83880; 84484; 85025; 85379; 93005; 93041; 93970; 94760; 96360; 99284

== ENCOUNTER 2023-07-14 13:50 | Day surgery (SDC) | payer MEDICARE, OTHER ==
[2023-07-14] MEDS ORDERED: Depo-Medrol 40 MG/ML IM ONE (13:51)
[2023-07-14] MEDS ORDERED: BUPIVACAINE 0.5% VIAL IJ ONE (13:51)
[2023-07-14] MEDS ORDERED: DIPRIVAN 200 MG/20 ML IV ONE (15:57)
[2023-07-14] MEDS ORDERED: Lactated Ringers 1,000 ML IV ONE (16:17)
--- NOTE | 2023-07-14 18:03 | XRAY ---
Indication: Bilateral SI joint injection. Intraoperative fluoroscopy provided for 26 seconds. 4 digital spot image submitted for interpretation demonstrates posterior needle tip projecting over the expected left and right SI joint. Correlate with intraoperative findings/report.
--- NOTE | 2023-07-14 18:07 | XRAY ---
26 seconds of fluoroscopy was used in surgery for bilateral SI joint injections.
== END 2023-07-14 16:25 | disposition home or self-care (01) ==
LOC: SDC-PAIN 13:50
PROVIDERS: ATTEND Psychiatry & Neurology Pain Medicine
DX: M46.1 Sacroiliitis, not elsewhere classified (principal); Z79.899 Other long term (current) drug therapy
CPT/HCPCS: 01992; 27096; 72202; 77002; G0260; J1030; J2704

== ENCOUNTER 2024-03-16 14:10 | Emergency (ER) | payer MEDICARE, OTHER ==
[2024-03-16 14:27] VITALS: TEMP 98.1; O2SAT 98
[2024-03-16] MEDS ORDERED: MORPHINE SULFATE 4 MG INJ ONE (15:16)
[2024-03-16] MEDS: MORPHINE SULFATE 4 MG INJ IM ONE (15:17)
--- NOTE | 2024-03-16 15:56 | ERPHSYRPT ---
- History of Present Illness Time Seen by Provider: 03/16/24 14:44 Source: patient Exam Limitations: no limitations Patient Subjective Stated Complaint: Pt states "I was raspberry picking and I tripped over a kumari and hit my knee on a pipe and my right knee is killing me." Triage Nursing Assessment: Pt presented alert and oriented X 3, skin pwd. Pt unable to put any weight on he rright knee.. PT right knee tender and slightly swollen. Physician History: 69-year-old female with history of arthritis presented in the ER after she tripped over a raspberry kumari, fell forward and hit her right knee against a plastic pipe almost 2 to 3 hours ago. Patient reports sudden severe sharp shooting pain in the right knee with difficult weightbearing. She applied ice with no significant relief. Patient thinks she has some swelling especially on the medial side of the knee. no injury anywhere else Allergies/Adverse Reactions: oxcarbazepine [From Trileptal] Allergy (Verified 12/26/22 10:44) Penicillins Allergy (Verified 01/04/23 13:33) pregabalin [From Lyrica] Allergy (Verified 12/26/22 10:44) Sulfa (Sulfonamide Antibiotics) Allergy (Verified 12/26/22 10:44) Home Medications: Atorvastatin Calcium [Lipitor 20MG Tablet] 40 mg PO DAILY 07/16/20 [History] Levothyroxine Sodium [Synthroid] 100 mcg PO DAILY 07/16/20 [History] Ranolazine [Ranolazine ER] 1 ea DAILY 07/16/20 [History] Isosorbide Mononitrate [Isosorbide Mononitrate ER] 30 mg PO DAILY 01/14/22 [History] Spironolactone 25 mg [Aldactone 25 MG] 25 mg PO DAILY 01/14/22 [History] Cyclobenzaprine HCl 10 mg [Cyclobenzaprine 10 MG] 10 mg PO HS 12/26/22 [History] Hx Tetanus, Diphtheria Vaccination/Date Given: Yes (2017) Hx Influenza Vaccination/Date Given: Yes Hx Pneumococcal Vaccination/Date Given: Yes Immunizations Up to Date: No Travel Risk - International Travel Have you traveled outside of the country in past 3 weeks: No - Emerging Infectious Disease Are you exhibiting symptoms associated with any current EIDs: No - Review of Systems Constitutional: No Symptoms Ears, Nose, & Throat: No Symptoms Respiratory: No Symptoms Cardiac: No Symptoms Abdominal/Gastrointestinal: No Symptoms Genitourinary Symptoms: No Symptoms Musculoskeletal: Arthralgias, Fall, Joint Pain, Joint Swelling Skin: No Symptoms Neurological: No Symptoms Endocrine: No Symptoms - Past Medical History Pertinent Past Medical History: Yes Neurological History: Other ENT History: Other Cardiac History: Other Respiratory History: Sleep Apnea Endocrine Medical History: Hypothyroidism Musculoskeletal History: Osteoarthritis GI Medical History: Hernia History: No Pertinent History Psycho-Social History: No Pertinent History Female Reproductive Disorders: No Pertinent History Other Medical History: PSH: TRIGEMINAL NEURALGIA SURGERY, Oct, 2 BACK SURGERIES (THINKS DISECTOMY AND SCOPE). PMH: MILD MITRAL REGURGITATION, - Past Surgical History Past Surgical History: Yes Neuro Surgical History: Other Cardiac: No Pertinent History Respiratory: No Pertinent History Gastrointestinal: No Pertinent History Genitourinary: No Pertinent History Musculoskeletal: Joint Replacement, Orthopedic Surgery Female Surgical History: Hysterectomy, Tubal Ligation Other Surgical History: back surgery 2019,brain surgery for trigimal neuropathy, partial left knee replacement, back surgery on the right and left, vaginal hernia, vein ablation - Social History Smoking Status: Never smoker Exposure to second hand smoke: No Drug Use: none Patient Lives Alone: No - Social Determinants of Health Will the patient participate in the screening: Declined to provide - Nursing Vital Signs Nursing Vital Signs: Initial Vital Signs Temperature 98.1 F 03/16/24 14:20 Pulse Rate 59 L 03/16/24 14:20 Respiratory Rate 18 03/16/24 14:20 Blood Pressure 133/63 03/16/24 14:20 O2 Sat by Pulse Oximetry 98 03/16/24 14:20 Pain Scale Pain Intensity 4 - Physical Exam General Appearance: no apparent distress Neck Exam: normal inspection, full range of motion Cardiovascular/Respiratory Exam: normal breath sounds, regular rate/rhythm Back Exam: normal inspection Hips Exam: bilateral: non-tender, normal inspection, normal range of motion, no evidence of injury Legs Exam: bilateral leg: non-tender, normal inspection, normal range of motion, no evidence of injury Knees Exam: right knee: bone tenderness (Medial knee), pain, soft tissue tenderness, swelling, left knee: non-tender, normal inspection, normal range of motion, no evidence of injury Ankle Exam: bilateral ankle: non-tender, normal inspection, normal range of motion, no evidence of injury Foot Exam: bilateral foot: non-tender, normal inspection, normal range of motion, no evidence of injury Neuro/Tendon Exam: normal sensation, normal motor functions, normal tendon functions Mental Status Exam: alert, oriented x 3, cooperative Skin Exam: normal color SpO2 Interpretation: normal SpO2: 98 Ordered Tests: Active Orders 24 hr Category Date Time Status KNEE (3 VIEWS) Stat Exams 03/16/24 14:37 Completed Medication Summary Discontinued Medications Generic Name Dose Route Start Last Admin Trade Name Eitan PRN Reason Stop Dose Admin Morphine Sulfate 4 mg 03/16/24 15:13 03/16/24 15:17 Morphine Sulfate 4 Mg/Ml Injection IM 03/16/24 15:14 4 mg STAT ONE Administration Morphine Sulfate Confirm 03/16/24 15:16 Morphine Sulfate 4 Mg/Ml Injection Administered 03/16/24 15:17 Dose 4 mg .ROUTE .STK-MED ONE - Progress Progress: improved, pain not gone completely Progress Note: 03/16/24 17:16 69-year-old is evaluated in the ER for ground-level fall with injury to right knee. Patient has no significant swelling. Has some tenderness on the medial side of the joint. Distal neurovascular intact. She is given morphine for symptomatic relief. X-rays are negative for fracture dislocation reviewed by me followed by official read. He did show some suprapatellar effusion I believe patient has ligamentous strain/sprain. Alexy wrap, weightbearing as tolerated, cane/walker for ambulation and outpatient orthopedics follow-up recommended. Counseled pt/family regarding: diagnosis, need for follow-up, rad results Medical Desision Making - Diagnostic Testing Diagnostic test were ordered, analyzed, and reviewed by me: Yes Radiological Interpretation: Interpreted by me, Reviewed by me, Teleradiologist Report - Risk of complications The pt has a mod risk of morbidity or mortality based on: Need for prescription drug management - Departure Departure Disposition: Home Clinical Impression: Left knee sprain Condition: Stable Critical Care Time: No Referrals: WOJCIECH MARTINES NP [Primary Care Provider] - Follow up with PCP 1 day Instructions: Knee Sprain (DC) Additional Instructions: Intermittent ice application. Use cane/walker for ambulation. Take Tylenol/ibuprofen as needed for pain. Outpatient follow-up with orthopedic surgery for reevaluation. Return for any worsening. Prescriptions: Ibuprofen 600 mg PO Q6HPRN PRN 10 Days #20 tablet PRN Reason: Pain
[2024-03-16 16:14] VITALS: RESP 18
--- NOTE | 2024-03-16 16:55 | XRAY ---
CLINICAL HISTORY: FALL COMPARISON: None. TECHNIQUE: X-ray of the right knee AP, oblique, Lateral views. FINDINGS: Normal bone density. No definite fracture or dislocation. No focal bony lesion. A radiological examination demonstrates no focal bony lesion or bone erosion. No sclerotic or destructive bone changes. Femorotibial joint spaces are normal with intact articular margins. Patellofemoral space is normal with intact articular margins. Loss of fat plane in suprapatellar compartment suggesting joint effusion. Preserved soft tissue planes. IMPRESSION: 1. No radiographic evidence of acute osseous injury. 2. Loss of fat plane in suprapatellar compartment suggesting joint effusion. DISCLAIMER:A subtle bone abnormality or fracture may not be readily apparent on x-rays, thus clinical correlation and further imaging including follow-up CT, MRI, or follow-up x-rays are advised as needed. Electronically Signed by: Carrol Macias MD. (03/16/2024 16:50:02 EDT)
[2024-03-16 17:16] VITALS: BP 108/58; PULSE 58
== END 2024-03-16 17:57 | disposition home or self-care (01) ==
LOC: ED 14:10
DX: S83.92XA Sprain of unspecified site of left knee, initial encounter (principal); W01.198A Fall on same level from slipping, tripping and stumbling with subsequent striking against other object, initial encounter; Z79.899 Other long term (current) drug therapy
CPT/HCPCS: 73562; 96372; 99283; J2270